=== PATIENT | female | born 1975 | race Caucasian/White ===

== ENCOUNTER 2022-04-04 12:08 | Outpatient (CLI) | payer BC, SELFPAY ==
[2022-04-04 22:10] LABS: Microalbumin Urine 15 mg/dL
[2022-04-04 22:12] LABS: Creatinine Urine 302.3 mg/dL; Microalbumin Creatinine Ratio 40 mg/g (0-30)
== END 2022-04-04 12:09 | disposition home or self-care (01) ==
LOC: LKVREF 12:11
PROVIDERS: PCP Physician Assistant Medical; Visit Provider Physician Assistant Medical
DX: Z01.818 Encounter for other preprocedural examination (principal); I10 Essential (primary) hypertension; E11.9 Type 2 diabetes mellitus without complications; E78.5 Hyperlipidemia, unspecified; F41.9 Anxiety disorder, unspecified
CPT/HCPCS: 82043; 82570; 87086

== ENCOUNTER 2023-04-23 11:07 | Outpatient (CLI) | payer OTHER, SELFPAY | END 2023-04-23 11:08 | disposition home or self-care (01) | LOC: LKVREF 11:07 | PROVIDERS: PCP Physician Assistant Medical; Visit Provider Physician Assistant Medical | DX: Z00.00 Encounter for general adult medical examination without abnormal findings (principal); I10 Essential (primary) hypertension; E11.9 Type 2 diabetes mellitus without complications; E04.1 Nontoxic single thyroid nodule; E78.5 Hyperlipidemia, unspecified; F41.9 Anxiety disorder, unspecified | CPT/HCPCS: 80053; 80061; 82043; 82570; 82607; 83036; 84443; 85027 ==